=== PATIENT | female | born 1955 | race Caucasian/White ===

== ENCOUNTER 2020-02-03 07:58 | Outpatient (CLI) | payer OTHER ==
[~2020-02-03 07:58] MED LIST: CLEOCIN HCL300 MG PO; [UNRECOGNIZED DRUG - OTHER] PO
== END 2020-02-03 08:09 | disposition home or self-care (01) ==
LOC: MAMO-SONO 07:58
PROVIDERS: ATTEND Obstetrics & Gynecology
DX: Z12.31 Encounter for screening mammogram for malignant neoplasm of breast (principal); N60.11 Diffuse cystic mastopathy of right breast; N60.12 Diffuse cystic mastopathy of left breast

== ENCOUNTER 2021-07-24 11:55 | Outpatient (CLI) | payer OTHER | END 2021-07-24 12:03 | disposition home or self-care (01) | LOC: MAMO-SONO 11:55 | PROVIDERS: ATTEND Obstetrics & Gynecology | DX: N60.11 Diffuse cystic mastopathy of right breast (principal); N60.12 Diffuse cystic mastopathy of left breast; Z12.31 Encounter for screening mammogram for malignant neoplasm of breast ==

== ENCOUNTER → 2022-07-30 | Outpatient (CLI) | payer OTHER | END | disposition home or self-care (01) | LOC: RAD 14:29 | PROVIDERS: ATTEND Physical Medicine & Rehabilitation | DX: M25.561 Pain in right knee (principal); M25.562 Pain in left knee; M25.551 Pain in right hip; M25.552 Pain in left hip ==

== ENCOUNTER 2022-09-24 11:00 | Outpatient (CLI) | payer OTHER | END 2022-09-24 11:05 | disposition home or self-care (01) | LOC: MAMO-SONO 11:00 | DX: Z12.31 Encounter for screening mammogram for malignant neoplasm of breast (principal); N60.11 Diffuse cystic mastopathy of right breast; N60.12 Diffuse cystic mastopathy of left breast ==

== ENCOUNTER 2022-10-31 13:18 | Outpatient (CLI) | payer OTHER | END 2022-10-31 13:24 | disposition home or self-care (01) | LOC: NUCLEAR 13:18 | PROVIDERS: ATTEND Internal Medicine | DX: M81.0 Age-related osteoporosis without current pathological fracture (principal) ==

== ENCOUNTER 2022-11-05 07:46 | Outpatient (CLI) | payer OTHER | END 2022-11-05 07:48 | disposition home or self-care (01) | LOC: SONOGRAMA 07:46 | PROVIDERS: ATTEND Internal Medicine | DX: R10.10 Upper abdominal pain, unspecified (principal) ==

== ENCOUNTER 2023-02-15 10:11 | Outpatient (CLI) | payer OTHER | END 2023-02-15 10:18 | disposition home or self-care (01) | LOC: RAD 10:11 | PROVIDERS: ATTEND Obstetrics & Gynecology | DX: M94.0 Chondrocostal junction syndrome [Tietze] (principal); M99.18 Subluxation complex (vertebral) of rib cage ==

== ENCOUNTER → 2024-10-07 14:49 | Outpatient (CLI) | payer OTHER | END | disposition home or self-care (01) | LOC: RAD 14:49 | DX: I11.9 Hypertensive heart disease without heart failure (principal) ==

== ENCOUNTER 2025-05-28 11:52 | Outpatient (CLI) | payer OTHER | END 2025-05-28 11:55 | disposition home or self-care (01) | LOC: RAD 11:52 | DX: M99.01 Segmental and somatic dysfunction of cervical region (principal); M99.02 Segmental and somatic dysfunction of thoracic region; M54.2 Cervicalgia; M54.6 Pain in thoracic spine ==

== ENCOUNTER 2025-05-31 12:18 | Outpatient (CLI) | payer OTHER | END 2025-05-31 12:23 | disposition home or self-care (01) | LOC: RAD 12:18 | DX: M25.511 Pain in right shoulder (principal); M79.601 Pain in right arm ==

== ENCOUNTER → 2025-08-12 09:26 | Outpatient (CLI) | payer OTHER | END | disposition home or self-care (01) | LOC: MRI 09:26 | DX: M25.511 Pain in right shoulder (principal) | CPT/HCPCS: 73221 ==